=== PATIENT | female | born 2000 | race African-American/Black ===

== ENCOUNTER 2022-03-29 07:40 | Emergency (ER) | payer OTHER ==
[2022-03-29 07:46] VITALS: RESP 18; TEMP 99.2; BMI 24.4
[2022-03-29] MEDS ORDERED: SODIUM CHLORIDE 1,000 ML IV STA (09:21)
[2022-03-29] MEDS ORDERED: METOCLOPRAMIDE HCL INJECTION 10 MG/2 ML VIAL IVPUSH ONE (09:22)
[2022-03-29] MEDS ORDERED: ONDANSETRON 4 MG/2 ML VIAL IVPUSH ONE (09:25)
[2022-03-29] MEDS ORDERED: ONDANSETRON 4 MG/2 ML VIAL ONE (09:37)
[2022-03-29 09:55] LABS: BASO % 0.2 % (0-2.0); EOS % 1.6 % (0-4.5); HEMATOCRIT 36.8 % (32.4-45.2); HEMOGLOBIN 12.7 GM/dL (10.7-15.3); LYMPH % 6.1 % (8-40); MCH 32.4 pg (25.7-33.7); MCHC 34.6 g/dl (32.0-36.0); MEAN CELL VOLUME 93.7 fl (80-96); MEAN PLT VOLUME 7.9 fl (7.5-11.1); MONO % 5.4 % (3.8-10.2); NEUT % 86.7 % (42.8-82.8); PLATELET COUNT 293 10^3/uL (134-434); RBC 3.92 M/mm3 (3.60-5.2); RDW 12.8 % (11.6-15.6); WHITE BLOOD COUNT 8.8 K/mm3 (4.0-10.0)
[2022-03-29 10:05] LABS: PH,URINE 5.5 (5.0-8.0); URINE APPEARANCE CLEAR; URINE BILIRUBIN NEGATIVE (NEGATIVE); URINE COLOR YELLOW; URINE GLUCOSE (UA) NEGATIVE (NEGATIVE); URINE KETONE TRACE (NEGATIVE); URINE LEUK ESTERASE NEGATIVE (NEGATIVE); URINE NITRITE NEGATIVE (NEGATIVE); URINE PROTEIN TRACE (NEGATIVE)
[2022-03-29 10:07] LABS: CALCIUM 8.6 mg/dL (8.5-10.1); HCG,QUALITATIVE URINE Negative
[2022-03-29 10:08] LABS: ALBUMIN 3.9 g/dl (3.4-5.0); BLOOD UREA NITROGEN 11.1 mg/dL (7-18)
[2022-03-29] MEDS ORDERED: FAMOTIDINE 20 MG/50 ML IVPB 20 MG/50 ML MG IVPB ONE ×2 (10:09→10:20)
[2022-03-29] MEDS ORDERED: MAG HYDROX/AL HYDROX/SIMETH 30 ML UNIT-DOSE CUP PO ONE (10:10)
[2022-03-29 10:11] LABS: CREATININE 0.8 mg/dL (0.55-1.3)
[2022-03-29 10:12] LABS: BILIRUBIN,TOTAL 1.4 mg/dL (0.2-1)
[2022-03-29] MEDS ORDERED: MAG HYDROX/AL HYDROX/SIMETH 30 ML UNIT-DOSE CUP ONE (10:20)
[2022-03-29 10:59] VITALS: BP 128/75; PULSE 107
== END 2022-03-29 11:07 | disposition home or self-care (01) ==
LOC: JER 07:40
PROC: 3E033GC Introduction of Other Therapeutic Substance into Peripheral Vein, Percutaneous Approach (ICD-10-PCS; principal; 2022-03-29)
DX: K52.9 Noninfective gastroenteritis and colitis, unspecified (principal)
CPT/HCPCS: 36415; 80053; 81003; 84703; 85025; 87086; 99284-25